=== PATIENT | female | born 1980 | race Caucasian/White ===

== ENCOUNTER 2017-04-16 18:37 | Observation (INO) | payer BC ==
[2017-04-16] MEDS ORDERED: Lactated Ringers 1,000 ML IV SCH (20:00)
== END 2017-04-16 21:45 | disposition home or self-care (01) ==
LOC: MW.OBCHECK 18:37 → MW.OB 18:40 → MW.OBCHECK 19:29
PROVIDERS: ADMIT Obstetrics & Gynecology; ATTEND Obstetrics & Gynecology
DX: O60.03 Preterm labor without delivery, third trimester (principal); O40.3XX0 Polyhydramnios, third trimester, not applicable or unspecified; Z3A.37 37 weeks gestation of pregnancy
CPT/HCPCS: 59025; J7120

== ENCOUNTER 2017-04-23 15:06 | Inpatient (IN) | payer BC ==
[2017-04-23] MEDS ORDERED: Sodium Chloride 0.9% 2.5 ML Syringe FLUSH PRN (15:37)
[2017-04-23] MEDS ORDERED: Sodium Chloride 0.9% 10 ML Syringe FLUSH PRN (15:37)
[2017-04-23] MEDS ORDERED: ceFAZolin 2 GM in Premix Bag 1 BAG IV ONE (15:37)
[2017-04-23] MEDS: Lactated Ringers 1,000 ML IV SCH ×3 (15:45→17:55)
[2017-04-23] MEDS ORDERED: Oxytocin/0.9 % Sodium Chloride 30 UNIT/500 ML BAG IV SCH (15:45)
[2017-04-23] MEDS ORDERED: Citric Acid/Sodium Citrate Solution 30 ML Cup PO SCH (15:45)
[2017-04-23] MEDS ORDERED: Sodium Chloride 0.9% 20 ML ONE (15:54)
[2017-04-23] MEDS ORDERED: Ondansetron 4 MG/2 ML SDV ONE (15:54)
[2017-04-23] MEDS ORDERED: ePHEDrine 50 MG/ML SDV ONE (15:54)
[2017-04-23] MEDS ORDERED: ceFAZolin 1 GM Vial ONE (15:54)
[2017-04-23] MEDS ORDERED: Oxytocin 10 Units/1 ML SDV ONE (15:54)
[2017-04-23] MEDS ORDERED: Morphine PF 1 MG/ML Amp ONE (15:57)
--- NOTE | 2017-04-23 15:58 | PCM.PREANE ---
Preanesthetic Assessment - Procedure Proposed Procedure: Secondary - Anesthesia/Transfusion/Family Hx Anesthesia History: Prior Anesthesia Without Reaction Family History of Anesthesia Reaction: No Intubation History: Unknown - Review of Systems General: Other (, term) Pulmonary: No Symptoms Cardiovascular: No Symptoms Gastrointestinal: Other (Gastric acid) Neurological: No Symptoms, Other (hx of scoliosis which led to problems placing regional for prior in 2012 elsewhere) Other: Reports: Diabetes (gestational diabetes; on insulin (fbs here at 52)) - Physical Assessment NPO Status Date: 04/23/17 NPO Status Time: 08:00 Height: 5 ft 3 in Weight: 210 lb ASA Class: 2E Mental Status: Alert & Oriented x3 Airway Class: Mallampati = 2 Dentition: Reports: Normal Dentition Thyro-Mental Finger Breadths: 3 Mouth Opening Finger Breadths: 3 ROM/Head Extension: Full Lungs: Clear to Auscultation, Normal Respiratory Effort Cardiovascular: Regular Rate, No Murmurs Other: palpable back (stated she has scoliosis) - Allergies Allergies/Adverse Reactions: Allergies Allergy/AdvReac Type Severity Reaction Status Date / Time No Known Allergies Allergy Verified 04/23/17 15:36 - Blood Blood Available: Yes Product(s) Available: PRBC (T and S) - Anesthesia Plan Pre-Op Medication Ordered: Antacids - Acknowledgements Anesthesia Type Planned: Spinal Pt an Appropriate Candidate for the Planned Anesthesia: Yes Alternatives and Risks of Anesthesia Discussed w Pt/Guardian: Yes Pt/Guardian Understands and Agrees with Anesthesia Plan: Yes Additional Comments: Ordered Dextrose to be titrated per [employer] ENGINEER/RN with D50. 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: Musculoskeletal History: Reports: None Neurological History: Reports: None Psychiatric History: Reports: Anxiety, Depression Endocrine/Metabolic History: Reports: Diabetes, Gestational Other Endocrine/Metabolic History: Hypothyroidism hx Oncologic (Cancer) History: Reports: Other (See Below) Other Oncologic History: Hx of SHANDRA 111 Dermatologic History: Reports: None - Infectious Disease History Infectious Disease History: Reports: None - Past Surgical History GI Surgical History: Reports: Cholecystectomy Female Surgical History: Reports: Section Musculoskeletal Surgical History: Reports: None - SUBSTANCE USE Smoking Status *Q: Current Some Day Smoker Tobacco Use Within Last Twelve Months: Cigarettes Second Hand Smoke Exposure: Yes Days Per Week of Alcohol Use: 4 Number of Drinks Per Day: 10 Total Drinks Per Week: 40 Recreational Drug Use History: Yes Recreational Drug Type: Reports: Marijuana/Hashish - HOME MEDS Home Medications: Home Meds ALPRAZolam [Xanax] 1 mg PO ASDIRECTED 09/08/13 [History] Sertraline [Zoloft] 100 mg PO DAILY 09/08/13 [History] - CURRENT (IN HOUSE) MEDS Current Meds: Current Medications Citric Acid/Sodium Citrate (Bicitra Solution) 30 ml PO .ONCE [facility] Cefazolin Sodium/Dextrose 2 gm (/ Premix) 50 mls @ 100 mls/hr IV ONETIME ONE Stop: 04/23/17 16:06 Lactated Ringer's (Ringers, Lactated) 1,000 mls @ 500 mls/hr IV .BOLUS SHAR[facility]A Oxytocin/Sodium Chloride (Oxytocin 30 Unit/500 Ml-Ns) 30 unit in 500 mls @ 250 mls/hr IV TITRATE [facility] Sodium Chloride (Saline Flush) 10 ml FLUSH ASDIRECTED PRN PRN Reason: Keep Vein Open Sodium Chloride (Saline Flush) 2.5 ml FLUSH ASDIRECTED PRN PRN Reason: Keep Vein Open
[2017-04-23] MEDS ORDERED: 50% Dextrose in Water 50 ML Syringe IVPUSH ONE (16:09)
[2017-04-23] MEDS ORDERED: Octyl 2-Cyanoacrylate 1 Tube ONE (16:15)
[2017-04-23] MEDS ORDERED: fentaNYL 100 MCG/2 ML SDV ONE (16:44)
[2017-04-23] MEDS ORDERED: Midazolam 1 MG/ML 2 ML SDV ONE (16:56)
[2017-04-23] MEDS ORDERED: Ibuprofen 800 MG Tab PO PRN (17:39)
[2017-04-23] MEDS ORDERED: Bisacodyl 10 MG Supp RECTAL PRN (17:39)
[2017-04-23] MEDS ORDERED: diphenhydrAMINE 50 MG/ML SDV IVPUSH PRN (17:39)
[2017-04-23] MEDS ORDERED: Methylergonovine 0.2 MG/1 ML Amp IM PRN (17:39)
[2017-04-23] MEDS ORDERED: Lanolin 100% Cream 7 GM Tube TOP PRN (17:39)
[2017-04-23] MEDS ORDERED: Ondansetron 4 MG/2 ML SDV IV PRN (17:39)
--- NOTE | 2017-04-23 17:46 | PCM.OPNOTE ---
- General Post-Op/Procedure Note Date of Surgery/Procedure: 04/23/17 Operative Procedure(s): repeat low transverse Findings: Liveborn female 8/9 weigth 4170 grams, lower uterine segment encased in adhesions, related to bladder and peritoneum Pre Op Diagnosis: 38 4/7 weeks prior x2, gestational diabetes A2, labor Post-Op Diagnosis: Same and extensive pelvic adhesions Anesthesia Technique: Epidural Primary Surgeon: Amena Watts Anesthesia Provider: Jimmy Starks Compensation Vice President: Cesar Al Pathology: none EBL in mLs: 600 Complications: None Known Condition: Good Free Text/Narrative:: Intake & Output 04/23/17 04/23/17 04/23/17 06:59 14:59 22:59 Intake Total 1000 Balance 1000
[2017-04-23] MEDS ORDERED: fentaNYL 100 MCG/2 ML SDV IVPUSH PRN (18:09)
[2017-04-23] MEDS: Ketorolac 30 MG/ML SDV IVPUSH SCH (18:09)
[2017-04-23] MEDS ORDERED: Naloxone 0.4 MG/ML Syringe IVPUSH PRN (18:09)
[2017-04-23] MEDS ORDERED: Nalbuphine 10 MG/1 ML Vial IVPUSH PRN (18:09)
--- NOTE | 2017-04-23 18:28 | PCM.POSTAN ---
POST ANESTHESIA ASSESSMENT - MENTAL STATUS Mental Status: Alert, Oriented - RESPIRATORY Respiratory Status: Respiratory Rate WNL, Airway Patent, O2 Saturation Stable - CARDIOVASCULAR CV Status: Pulse Rate WNL, Blood Pressure Stable - GASTROINTESTINAL GI Status: No Symptoms - PAIN Pain Score: 1 - POST OP HYDRATION Hydration Status: Adequate & Stable
--- NOTE | 2017-04-23 21:41 | PCM48HPAN ---
Post Anesthesia Note - EVALUATION WITHIN 48HRS OF ANESTHETIC Vital Signs in Normal Range: Yes Patient Participated in Evaluation: Yes Respiratory Function Stable: Yes Airway Patent: Yes Cardiovascular Function Stable: Yes Hydration Status Stable: Yes Pain Control Satisfactory: Yes Nausea and Vomiting Control Satisfactory: Yes Mental Status Recovered: Yes Resp Rate: 18 - COMMENTS/OBSERVATIONS Free Text/Narrative:: Vitals were in normal range. Neuroaxis monitoring continues. No pruritis, no pain, holding baby and smiling.
[2017-04-23] MEDS: Docusate Sodium 100 MG Cap PO SCH (23:48)
[2017-04-24] MEDS: Ketorolac 30 MG/ML SDV IVPUSH SCH ×4 (00:04→17:50)
[2017-04-24] MEDS: Lactated Ringers 1,000 ML IV SCH (00:10)
--- NOTE | 2017-04-24 00:35 | OR ---
SURGEON: Amena Watts M.D. DATE OF PROCEDURE: 04/23/2017 PREOPERATIVE DIAGNOSES: 1. 38-4/7th weeks intrauterine . 2. Active spontaneous labor. 3. Prior delivery x2. 4. Declines vaginal trial of labor. 5. Gestational diabetes. 6. Advanced maternal age. POSTOPERATIVE DIAGNOSES: 1. 38-4/7th weeks intrauterine . 2. Active spontaneous labor. 3. Prior delivery x2. 4. Declines vaginal trial of labor. 5. Gestational diabetes. 6. Advanced maternal age. 7. Pelvic adhesions. PROCEDURE: Repeat low-transverse section with lysis of adhesions. ANESTHESIA: Spinal. ESTIMATED BLOOD LOSS: 600 mL. FINDINGS: Liveborn female, score of 8 and 9, weighing 4170 g. Normal-appearing tubes and ovaries. There was dense adhesion all across the lower uterine segment involving the peritoneum and bladder, which was dissected and adhesion barrier was placed. COMPLICATIONS: None known. DISPOSITION: Stable to recovery. BRIEF HISTORY: This is a 36-year-old female. She is G5, P2-0-2-2, who presents at 38-4/7th weeks' gestation with contractions becoming increasingly regular and painful every 2 to 3 minutes. During observation on Labor and Delivery, she changed from 3 to 4 cm dilatation. She is scheduled for repeat delivery in 1 week and, therefore, a decision was made to proceed with a repeat with risks discussed including bleeding; infection; injury to bowel, bladder, or blood vessels; injury to other organs; risk of thromboembolic event; and risk of anesthesia. Understanding all these risks, she does desire to proceed. DESCRIPTION OF PROCEDURE: With the patient in left tilt position, under adequate spinal analgesia, the abdomen was prepped with chlorhexidine and draped in the usual fashion for abdominal surgery. SCDs were in place, Zuleta catheter had been placed, and she had received 2 g of Ancef IV. After documentation of adequate analgesia, the prior cicatrix was excised, and the incision was carried through subcutaneous tissue in a low transverse incision to the fascia, which was scored transversely. The fascia was elevated from the underlying rectus muscle and using sharp and blunt dissection. There were large blood vessels feeding the prior adhesions, and these were cauterized. The rectus muscles were then bluntly in the midline. A finger was used to enter the peritoneal cavity towards the caudad end of the incision, and there were no adhesions cephalad to the entry point, but there were extensive adhesions in the caudad direction over the lower uterine segment. There were also large tortuous vessels within these adhesions. The large tortuous vessels were grasped with clamp and cauterized in order to facilitate dissection of the adhesions off the lower uterine segment which was performed in a slow meticulous fashion using Metzenbaum scissors and electrocautery for hemostasis. Once the dense adhesions had been released, the bladder was easily pushed down below the field of dissection, and a transverse curvilinear incision was made over the lower uterine segment with a scalpel. A finger was used to enter the amniotic cavity. Meconium was noted. The head was delivered via the uterine incision, and DeLee suction was performed with subsequent delivery of the infant's shoulders and body without any difficulty. The was a liveborn female, score of 8 and 9, weighing 4170 g. After the cord was clamped x2 and cut and the infant was handed to Dr. Peng who was present at delivery, cord blood was collected for cord ABGs as well as routine cord blood sampling. The placenta was removed with fundal massage, and the uterus was cleaned with a dry laparotomy tape. The uterine incision was closed with a running locked suture of 0 Polysorb, followed by an imbricating layer of 0 Polysorb. The posterior cul-de-sac and pericolic gutters were cleaned with wet laparotomy tape. The tubes and ovaries were inspected and they appeared normal. Complete hemostasis was confirmed over the lower uterine segment. However, it was very raw from the dissection and, therefore, adhesion barrier was placed. The rectus muscle and peritoneum were then loosely approximated in the midline using a running mattress suture of 0 Polysorb. The posterior aspect of the fascia was inspected. There were no areas of bleeding. Therefore, the fascial incision was closed with a running suture of 0 Polysorb. Subcutaneous tissue was copiously irrigated. Any areas of bleeding that were noted were cauterized. The deep subcutaneous tissue was closed with 0 Vicryl, and 3-0 Polysorb was utilized for subcuticular closure, followed by Dermabond. Final sponge, needle, and instrument counts were reported as correct. There were no known complications. The patient was transferred to recovery in good condition. OMI / OG /[id number]
[2017-04-24] MEDS: diphenhydrAMINE 50 MG/ML SDV IVPUSH PRN ×2 (01:02→05:04)
[2017-04-24 05:51] LABS: CHLORIDE,CL 104 mmol/L (98-107); SODIUM,NA 134 mmol/L (136-145)
--- NOTE | 2017-04-24 09:37 | PCM.PNPP ---
- General Info Date of Service: 04/24/17 Functional Status: Reports: Pain Controlled, Tolerating Diet, Ambulating, Urinating - Review of Systems General: Denies: Fever, Fatigue, Malaise HEENT: Denies: Headaches Pulmonary: Denies: Shortness of Breath, Pleuritic Chest Pain Cardiovascular: Denies: Chest Pain, Palpitations, Dyspnea on Exertion Gastrointestinal: Denies: Abdominal Pain Genitourinary: Denies: Flank Pain Psychiatric: Denies: Depression, Mood Lability, Anxiety - General Info Date of Service: 04/24/17 - Patient Data Vital Signs - Most Recent: Last Vital Signs Temp 36.9 C 04/24/17 04:00 Pulse 78 04/24/17 04:00 Resp 15 04/24/17 08:00 BP 108/66 04/24/17 04:00 Pulse Ox 94 L 04/24/17 08:00 Weight - Most Recent: 210 lb I&O - Last 24 Hours: Intake & Output 04/23/17 04/24/17 04/24/17 22:59 06:59 14:59 Intake Total 3100 1925 Output Total 190 350 Balance 2910 1575 Lab Results - Last 24 Hours: Laboratory Results - last 24 hr 04/23/17 04/23/17 04/23/17 Range/Units 15:53 15:53 15:54 WBC 5.87 (4.0-11.0) K/uL RBC 4.28 L (4.30-5.90) M/uL Hgb 11.9 L (12.0-16.0) g/dL Hct 36.1 (36.0-46.0) % MCV 84.3 (80.0-98.0) fL MCH 27.8 (27.0-32.0) pg MCHC 33.0 (31.0-37.0) g/dL RDW Std Deviation 43.2 (28.0-62.0) fl RDW Coeff of Carla 14 (11.0-15.0) % Plt Count 248 (150-400) K/uL MPV 11.10 (7.40-12.00) fL Nucleated RBC % 0.0 /100WBC Nucleated RBCs # 0 K/uL Sodium (136-145) mmol/L Potassium (3.5-5.1) mmol/L Chloride (98-107) mmol/L Carbon Dioxide (21.0-32.0) mmol/L BUN (7.0-18.0) mg/dL Creatinine (0.6-1.0) mg/dL Est Cr Clr Drug Dosing mL/min Estimated GFR (MDRD) ml/min Glucose (74-106) mg/dL POC Glucose 52 L (60-110) mg/dL Calcium (8.5-10.1) mg/dL Blood Type O POSITIVE Antibody Screen NEGATIVE 04/23/17 04/23/17 04/23/17 Range/Units 16:26 18:13 21:16 WBC (4.0-11.0) K/uL RBC (4.30-5.90) M/uL Hgb (12.0-16.0) g/dL Hct (36.0-46.0) % MCV (80.0-98.0) fL MCH (27.0-32.0) pg MCHC (31.0-37.0) g/dL RDW Std Deviation (28.0-62.0) fl RDW Coeff of Carla (11.0-15.0) % Plt Count (150-400) K/uL MPV (7.40-12.00) fL Nucleated RBC % /100WBC Nucleated RBCs # K/uL Sodium (136-145) mmol/L Potassium (3.5-5.1) mmol/L Chloride (98-107) mmol/L Carbon Dioxide (21.0-32.0) mmol/L BUN (7.0-18.0) mg/dL Creatinine (0.6-1.0) mg/dL Est Cr Clr Drug Dosing mL/min Estimated GFR (MDRD) ml/min Glucose (74-106) mg/dL POC Glucose 112 H 73 68 (60-110) mg/dL Calcium (8.5-10.1) mg/dL Blood Type Antibody Screen 04/24/17 04/24/17 Range/Units 05:26 05:26 WBC (4.0-11.0) K/uL RBC (4.30-5.90) M/uL Hgb 8.9 L (12.0-16.0) g/dL Hct 27.5 L (36.0-46.0) % MCV (80.0-98.0) fL MCH (27.0-32.0) pg MCHC (31.0-37.0) g/dL RDW Std Deviation (28.0-62.0) fl RDW Coeff of Carla (11.0-15.0) % Plt Count (150-400) K/uL MPV (7.40-12.00) fL Nucleated RBC % /100WBC Nucleated RBCs # K/uL Sodium 134 L (136-145) mmol/L Potassium 4.1 (3.5-5.1) mmol/L Chloride 104 (98-107) mmol/L Carbon Dioxide 25.2 (21.0-32.0) mmol/L BUN 12 (7.0-18.0) mg/dL Creatinine 0.8 (0.6-1.0) mg/dL Est Cr Clr Drug Dosing 81.19 mL/min Estimated GFR (MDRD) > 60.0 ml/min Glucose 64 L (74-106) mg/dL POC Glucose (60-110) mg/dL Calcium 8.0 L (8.5-10.1) mg/dL Blood Type Antibody Screen Med Orders - Current: Current Medications Bisacodyl (Dulcolax) 10 mg RECTAL .ONCE PRN PRN Reason: Constipation Citric Acid/Sodium Citrate (Bicitra Solution) 30 ml PO .ONCE [facility] Last Admin: 04/23/17 16:24 Dose: 30 ml Diphenhydramine HCl (Benadryl) 25 mg IVPUSH Q6H PRN PRN Reason: Itching or Nausea Diphenhydramine HCl (Benadryl) 25 mg IVPUSH Q4H PRN PRN Reason: Itching Stop: 04/24/17 18:09 Last Admin: 04/24/17 05:04 Dose: 25 mg Docusate Sodium (Colace) 100 mg PO BID [facility] Last Admin: 04/23/17 23:48 Dose: Not Given Emollient Ointment (Lansinoh Hpa) 0 gm TOP ASDIRECTED PRN PRN Reason: Sore Nipples Fentanyl (Sublimaze) 50 mcg IVPUSH Q45M PRN PRN Reason: Pain (severe 7-10) Stop: 04/24/17 18:10 Lactated Ringer's (Ringers, Lactated) 1,000 mls @ 500 mls/hr IV .BOLUS [facility] Last Admin: 04/23/17 16:19 Dose: 999 mls/hr Oxytocin/Sodium Chloride (Oxytocin 30 Unit/500 Ml-Ns) 30 unit in 500 mls @ 250 mls/hr IV TITRATE [facility] Lactated Ringer's (Ringers, Lactated) 1,000 mls @ 125 mls/hr IV ASDIRECTED [facility] Last Admin: 04/24/17 00:10 Dose: 125 mls/hr Ibuprofen (Motrin) 800 mg PO Q8H PRN PRN Reason: mild pain or fever Ketorolac Tromethamine (Toradol) 30 mg IVPUSH Q6H [facility] Stop: 04/24/17 17:46 Last Admin: 04/24/17 06:03 Dose: 30 mg Methylergonovine Maleate (Methergine) 0.2 mg IM .ONCE PRN PRN Reason: Excessive Vaginal Bleeding Nalbuphine HCl (Nubain) 5 mg IVPUSH Q3H PRN PRN Reason: Pruritis Stop: 04/24/17 18:09 Naloxone HCl (Narcan) 0.1 mg IVPUSH ONETIME PRN PRN Reason: Respiratory Depression Stop: 04/24/17 18:09 Ondansetron HCl (Zofran) 4 mg IV Q4H PRN PRN Reason: Nausea/Vomiting Last Admin: 04/23/17 23:30 Dose: 4 mg Oxycodone/Acetaminophen (Percocet 325-5 Mg) 1 tab PO Q4H PRN PRN Reason: Pain (moderate 4-6) Oxycodone/Acetaminophen (Percocet 325-5 Mg) 2 tab PO Q4H PRN PRN Reason: Pain (moderate 4-6) Sodium Chloride (Saline Flush) 10 ml FLUSH ASDIRECTED PRN PRN Reason: Keep Vein Open Sodium Chloride (Saline Flush) 2.5 ml FLUSH ASDIRECTED PRN PRN Reason: Keep Vein Open Discontinued Medications Cefazolin Sodium (Ancef) Confirm Administered Dose 2 gm .ROUTE .STK-MED ONE Stop: 04/23/17 15:55 Dextrose/Water (Dextrose 50% In Water) 50 ml IVPUSH ONETIME ONE Stop: 04/23/17 16:10 Last Admin: 04/23/17 16:13 Dose: 25 ml Ephedrine Sulfate (Ephedrine Sulfate) Confirm Administered Dose 50 mg .ROUTE .STK-MED ONE Stop: 04/23/17 15:55 Fentanyl (Sublimaze) Confirm Administered Dose 100 mcg .ROUTE .STK-MED ONE Stop: 04/23/17 16:45 Cefazolin Sodium/Dextrose 2 gm (/ Premix) 50 mls @ 100 mls/hr IV ONETIME ONE Stop: 04/23/17 16:06 Sodium Chloride (Normal Saline) Confirm Administered Dose 20 mls @ as directed .ROUTE .STK-MED ONE Stop: 04/23/17 15:55 Ibuprofen (Motrin) 800 mg PO Q8H PRN PRN Reason: mild pain or fever Midazolam HCl (Versed 1 Mg/Ml) Confirm Administered Dose 2 mg .ROUTE .STK-MED ONE Stop: 04/23/17 16:57 Morphine Sulfate (Duramorph Pf) Confirm Administered Dose 1 mg .ROUTE .STK-MED ONE Stop: 04/23/17 15:58 Octyl Cyanoacrylate (Dermabond Advance) Confirm Administered Dose 1 applic .ROUTE .STK-MED ONE Stop: 04/23/17 16:16 Ondansetron HCl (Zofran) Confirm Administered Dose 4 mg .ROUTE .STK-MED ONE Stop: 04/23/17 15:55 Oxytocin (Pitocin) Confirm Administered Dose 20 unit .ROUTE .STK-MED ONE Stop: 04/23/17 15:55 - Interaction Disposition, : [place] in Room with Family Infant Feeding: Bottle Fed Support Person: - Recovery Exam Fundal Tone: Firm Fundal Level: 2 Fingerbreadths Below Umbilicus Fundal Placement: Right Lochia Amount: Scant Lochia Color: Rubra/Red Perineum Description: Intact, Minimal Bruising/Swelling Episiotomy/Laceration: None Other Urinary Elimination, : Catheter removed - Exam General: Alert, Oriented HEENT: Pupils Equal Lungs: Clear to Auscultation, Normal Respiratory Effort Cardiovascular: Regular Rate, Regular Rhythm GI/Abdominal Exam: Normal Bowel Sounds, Non-Tender Extremities: Normal Inspection, Pedal Edema Skin: Warm Wound/Incisions: Dressing Dry and Intact Psy/Mental Status: Alert, Normal Affect, Normal Mood - Problem List & Annotations (1) Delivery by section of full-term infant SNOMED Code(s): 209910916 Code(s): O82 - ENCOUNTER FOR DELIVERY WITHOUT INDICATION Status: Acute Current Visit: Yes (2) H/O section SNOMED Code(s): 359038476 Code(s): Z98.891 - HISTORY OF UTERINE SCAR FROM PREVIOUS SURGERY Status: Acute Current Visit: Yes (3) Gestational diabetes SNOMED Code(s): 16569767 Code(s): O24.419 - GESTATIONAL DIABETES MELLITUS IN , UNSP CONTROL Status: Acute Current Visit: Yes Qualifiers: Gestational diabetes mellitus control: insulin-controlled (4) Dysthymic disorder SNOMED Code(s): 32901394 Code(s): F34.1 - DYSTHYMIC DISORDER Status: Acute Current Visit: Yes - Problem List Review Problem List Initiated/Reviewed/Updated: Yes - Assessment Assessment:: POD#1 s/p RLTCS, stable and afebrile Gestational diabetes, insulin controlled, complicating - BS WNL Depression with Anxiety- Mood stable - Plan Plan:: Continue routine care. Restart Zoloft OOB and ambulate ad lyric Saline out after Toradol this afternoon
[2017-04-24] MEDS: Sertraline 100 MG Tab PO SCH (12:06)
[2017-04-24] MEDS: Docusate Sodium 100 MG Cap PO SCH ×2 (12:06→21:03)
[2017-04-24] MEDS: Acetaminophen/oxyCODONE 325-5 MG Tab PO PRN ×2 (18:20→22:52)
[2017-04-24] MEDS ORDERED: Ibuprofen 800 MG Tab PO PRN (23:45)
[2017-04-25] MEDS: Acetaminophen/oxyCODONE 325-5 MG Tab PO PRN ×3 (03:34→12:53)
[2017-04-25 09:03] VITALS: BP 110/77
[2017-04-25] MEDS: Sertraline 100 MG Tab PO SCH (09:11)
[2017-04-25] MEDS: Docusate Sodium 100 MG Cap PO SCH (09:12)
--- NOTE | 2017-04-25 12:26 | PCM.PNPP ---
- General Info Date of Service: 04/25/17 Functional Status: Reports: Pain Controlled, Tolerating Diet, Ambulating, Urinating - Review of Systems General: Denies: Fever, Chills HEENT: Denies: Headaches Pulmonary: Denies: Shortness of Breath, Pleuritic Chest Pain, Cough Cardiovascular: Denies: Chest Pain, Palpitations, Dyspnea on Exertion Gastrointestinal: Denies: Abdominal Pain Genitourinary: Denies: Dysuria, Incontinence, Flank Pain Psychiatric: Denies: Depression, Mood Lability, Anxiety - General Info Date of Service: 04/25/17 - Patient Data Vital Signs - Most Recent: Last Vital Signs Temp 36.6 C 04/25/17 08:05 Pulse 86 04/25/17 08:05 Resp 16 04/25/17 08:05 BP 110/77 04/25/17 08:05 Pulse Ox 97 04/25/17 08:05 Weight - Most Recent: 210 lb Med Orders - Current: Current Medications Bisacodyl (Dulcolax) 10 mg RECTAL .ONCE PRN PRN Reason: Constipation Citric Acid/Sodium Citrate (Bicitra Solution) 30 ml PO .ONCE [facility] Last Admin: 04/23/17 16:24 Dose: 30 ml Diphenhydramine HCl (Benadryl) 25 mg IVPUSH Q6H PRN PRN Reason: Itching or Nausea Docusate Sodium (Colace) 100 mg PO BID [facility] Last Admin: 04/25/17 09:12 Dose: 100 mg Emollient Ointment (Lansinoh Hpa) 0 gm TOP ASDIRECTED PRN PRN Reason: Sore Nipples Lactated Ringer's (Ringers, Lactated) 1,000 mls @ 500 mls/hr IV .BOLUS [facility] Last Admin: 04/23/17 16:19 Dose: 999 mls/hr Oxytocin/Sodium Chloride (Oxytocin 30 Unit/500 Ml-Ns) 30 unit in 500 mls @ 250 mls/hr IV TITRATE SHARIFA Lactated Ringer's (Ringers, Lactated) 1,000 mls @ 125 mls/hr IV ASDIRECTED [facility] Last Admin: 04/24/17 00:10 Dose: 125 mls/hr Ibuprofen (Motrin) 800 mg PO Q8H PRN PRN Reason: mild pain or fever Methylergonovine Maleate (Methergine) 0.2 mg IM .ONCE PRN PRN Reason: Excessive Vaginal Bleeding Ondansetron HCl (Zofran) 4 mg IV Q4H PRN PRN Reason: Nausea/Vomiting Last Admin: 04/23/17 23:30 Dose: 4 mg Oxycodone/Acetaminophen (Percocet 325-5 Mg) 1 tab PO Q4H PRN PRN Reason: Pain (moderate 4-6) Last Admin: 04/24/17 22:52 Dose: 1 tab Oxycodone/Acetaminophen (Percocet 325-5 Mg) 2 tab PO Q4H PRN PRN Reason: Pain (moderate 4-6) Last Admin: 04/25/17 09:12 Dose: 2 tab Sertraline HCl (Zoloft) 150 mg PO DAILY [facility] Last Admin: 04/25/17 09:11 Dose: 150 mg Sodium Chloride (Saline Flush) 10 ml FLUSH ASDIRECTED PRN PRN Reason: Keep Vein Open Sodium Chloride (Saline Flush) 2.5 ml FLUSH ASDIRECTED PRN PRN Reason: Keep Vein Open Discontinued Medications Cefazolin Sodium (Ancef) Confirm Administered Dose 2 gm .ROUTE .STK-MED ONE Stop: 04/23/17 15:55 Dextrose/Water (Dextrose 50% In Water) 50 ml IVPUSH ONETIME ONE Stop: 04/23/17 16:10 Last Admin: 04/23/17 16:13 Dose: 25 ml Diphenhydramine HCl (Benadryl) 25 mg IVPUSH Q4H PRN PRN Reason: Itching Stop: 04/24/17 18:09 Last Admin: 04/24/17 05:04 Dose: 25 mg Ephedrine Sulfate (Ephedrine Sulfate) Confirm Administered Dose 50 mg .ROUTE .STK-MED ONE Stop: 04/23/17 15:55 Fentanyl (Sublimaze) Confirm Administered Dose 100 mcg .ROUTE .STK-MED ONE Stop: 04/23/17 16:45 Fentanyl (Sublimaze) 50 mcg IVPUSH Q45M PRN PRN Reason: Pain (severe 7-10) Stop: 04/24/17 18:10 Cefazolin Sodium/Dextrose 2 gm (/ Premix) 50 mls @ 100 mls/hr IV ONETIME ONE Stop: 04/23/17 16:06 Sodium Chloride (Normal Saline) Confirm Administered Dose 20 mls @ as directed .ROUTE .STK-MED ONE Stop: 04/23/17 15:55 Ibuprofen (Motrin) 800 mg PO Q8H PRN PRN Reason: mild pain or fever Ketorolac Tromethamine (Toradol) 30 mg IVPUSH Q6H [facility] Stop: 04/24/17 17:46 Last Admin: 04/24/17 17:50 Dose: 30 mg Midazolam HCl (Versed 1 Mg/Ml) Confirm Administered Dose 2 mg .ROUTE .STK-MED ONE Stop: 04/23/17 16:57 Morphine Sulfate (Duramorph Pf) Confirm Administered Dose 1 mg .ROUTE .STK-MED ONE Stop: 04/23/17 15:58 Nalbuphine HCl (Nubain) 5 mg IVPUSH Q3H PRN PRN Reason: Pruritis Stop: 04/24/17 18:09 Naloxone HCl (Narcan) 0.1 mg IVPUSH ONETIME PRN PRN Reason: Respiratory Depression Stop: 04/24/17 18:09 Octyl Cyanoacrylate (Dermabond Advance) Confirm Administered Dose 1 applic .ROUTE .STK-MED ONE Stop: 04/23/17 16:16 Ondansetron HCl (Zofran) Confirm Administered Dose 4 mg .ROUTE .STK-MED ONE Stop: 04/23/17 15:55 Oxytocin (Pitocin) Confirm Administered Dose 20 unit .ROUTE .STK-MED ONE Stop: 04/23/17 15:55 - Infant Interaction Infant Disposition, : [place] in Room with Family Infant Feeding: Bottle Fed Support Person: - Recovery Exam Fundal Tone: Firm Fundal Level: 1 Fingerbreadths Below Umbilicus Fundal Placement: Midline Lochia Amount: Scant Lochia Color: Rubra/Red Perineum Description: Intact, Minimal Bruising/Swelling Episiotomy/Laceration: None Bladder Status: Nonpalpable, Voiding Urinary Elimination: Voided Other Urinary Elimination, : Catheter removed - Exam General: Alert, Oriented HEENT: Pupils Equal Lungs: Clear to Auscultation, Normal Respiratory Effort Cardiovascular: Regular Rate, Regular Rhythm GI/Abdominal Exam: Normal Bowel Sounds Extremities: Non-Tender, Pedal Edema Skin: Warm Wound/Incisions: Healing Well Neurological: No New Focal Deficit Psy/Mental Status: Alert, Normal Affect, Normal Mood - Problem List & Annotations (1) Delivery by section of full-term SNOMED Code(s): 562349036 Code(s): O82 - ENCOUNTER FOR DELIVERY WITHOUT INDICATION Status: Acute Current Visit: Yes (2) H/O section SNOMED Code(s): 830129643 Code(s): Z98.891 - HISTORY OF UTERINE SCAR FROM PREVIOUS SURGERY Status: Acute Current Visit: Yes (3) Gestational diabetes SNOMED Code(s): 79724546 Code(s): O24.419 - GESTATIONAL DIABETES MELLITUS IN , UNSP CONTROL Status: Acute Current Visit: Yes Qualifiers: Gestational diabetes mellitus control: insulin-controlled (4) Dysthymic disorder SNOMED Code(s): 85711077 Code(s): F34.1 - DYSTHYMIC DISORDER Status: Acute Current Visit: Yes - Problem List Review Problem List Initiated/Reviewed/Updated: Yes - Assessment Assessment:: POD#2 s/p RLTCS, stable and afebrile Doing well and stable for discharge today - Plan Plan:: Discharge instructions reviewed with patient Prescription for pain meds- Ibuprofen and Percocet sent to her pharmacy Care of incision reviewed Bleeding and infection precautions reviewed Nothing in the vagina for 6 weeks She should continue her Zoloft and may restart her Xanax PRN Follow up in the clinic in 2 and 6weeks
== END 2017-04-25 14:25 | disposition home or self-care (01) | DRG 540 ==
LOC: MW.OBCHECK 15:06 → MW.OB 15:09 → OBSVTOIN 15:37 → MW.OB 15:37 → MW.OBCHECK 15:37
PROVIDERS: ADMIT Obstetrics & Gynecology; ATTEND Obstetrics & Gynecology
PROC: 10D00Z1 Extraction of Products of Conception, Low, Open Approach (ICD-10-PCS; principal; 2017-04-23)
PROC: 3E0P05Z Introduction of Adhesion Barrier into Female Reproductive, Open Approach (ICD-10-PCS; 2017-04-23)
PROC: 0DNW0ZZ Release Peritoneum, Open Approach (ICD-10-PCS; 2017-04-23)
DX: O24.429 Gestational diabetes mellitus in childbirth, unspecified control (principal); O09.523 Supervision of elderly multigravida, third trimester; Z3A.38 38 weeks gestation of pregnancy; Z37.0 Single live birth
CPT/HCPCS: 01961; 36415; 59025; 80048; 82962; 85014; 85018; 85027; 86850; 86900; 86901; A9270-GY; J0690; J1200; J1885; J2250; J2274; J2405; J2590; J3010; J7060; J7120

== ENCOUNTER 2019-11-21 15:14 | Inpatient (IN) | payer BC ==
[2019-11-21] MEDS ORDERED: Sodium Chloride 0.9% 10 ML SDV IV PRN (16:12)
[2019-11-21] MEDS ORDERED: Citric Acid/Sodium Citrate Solution 30 ML Cup PO ONE (16:12)
[2019-11-21] MEDS ORDERED: ceFAZolin 2 GM in Premix Bag 1 BAG IV ONE (16:12)
[2019-11-21] MEDS ORDERED: Sodium Chloride 0.9% 2.5 ML Syringe FLUSH PRN (16:12)
[2019-11-21] MEDS ORDERED: Sodium Chloride 0.9% 10 ML Syringe FLUSH PRN (16:12)
[2019-11-21] MEDS ORDERED: Lactated Ringers 1,000 ML IV SCH ×2 (16:15→20:00)
[2019-11-21] MEDS ORDERED: Oxytocin/0.9 % Sodium Chloride 30 UNIT/500 ML BAG IV SCH (16:15)
[2019-11-21] MEDS ORDERED: Acetaminophen 650 MG Supp RECTAL ONE (16:18)
[2019-11-21] MEDS ORDERED: ceFAZolin/Dextrose,Iso-Osmotic 2 GM/50 ML Duplex Bag IV ONE (16:38)
[2019-11-21] MEDS ORDERED: fentaNYL 100 MCG/2 ML SDV ONE (16:39)
[2019-11-21] MEDS ORDERED: Morphine PF 10 MG/10 ML SDV ONE (16:39)
[2019-11-21] MEDS ORDERED: Ondansetron 4 MG/2 ML SDV ONE (16:45)
[2019-11-21] MEDS ORDERED: Oxytocin 10 Units/1 ML SDV ONE (16:45)
[2019-11-21] MEDS ORDERED: Ketorolac 30 MG/ML SDV ONE (16:45)
[2019-11-21] MEDS ORDERED: Dexamethasone 4 MG/ML 5 ML MDV ONE (16:46)
--- NOTE | 2019-11-21 16:56 | PCM.PREANE ---
Preanesthetic Assessment - Anesthesia/Transfusion/Family Hx Anesthesia History: Prior Anesthesia Without Reaction Other Type of Anesthesia Reaction Comment: grandmother and myself have problems with postop N&V Family History of Anesthesia Reaction: No Transfusion History: No Prior Transfusion(s) Intubation History: Unknown - Review of Systems General: No Symptoms Pulmonary: No Symptoms Cardiovascular: No Symptoms Gastrointestinal: No Symptoms Neurological: No Symptoms Other: Reports: None - Physical Assessment Height: 5 ft 3 in Weight: 90.718 kg ASA Class: 2E Mental Status: Alert & Oriented x3 Airway Class: Mallampati = 2 Dentition: Reports: Normal Dentition Thyro-Mental Finger Breadths: 3 Mouth Opening Finger Breadths: 3 ROM/Head Extension: Full Lungs: Clear to Auscultation, Normal Respiratory Effort Cardiovascular: Regular Rate, Regular Rhythm - Allergies Allergies/Adverse Reactions: Allergies Allergy/AdvReac Type Severity Reaction Status Date / Time No Known Allergies Allergy Verified 11/20/19 10:49 - Blood Blood Available: No - Anesthesia Plan Pre-Op Medication Ordered: None - Acknowledgements Anesthesia Type Planned: Spinal (general anesthesia back-up plan) Pt an Appropriate Candidate for the Planned Anesthesia: Yes Alternatives and Risks of Anesthesia Discussed w Pt/Guardian: Yes Pt/Guardian Understands and Agrees with Anesthesia Plan: Yes PreAnesthesia Questionnaire - Past Health History Medical/Surgical History: Denies Medical/Surgical History HEENT History: Reports: Other (See Below) Other HEENT History: wears glasses Cardiovascular History: Reports: Other (See Below) Other Cardiovascular History: elevated BP now due to preeclampsia Respiratory History: Reports: None Gastrointestinal History: Reports: Other (See Below) Other Gastrointestinal History: occasional heartburn with Genitourinary History: Reports: None REPOSSESSOR History: Reports: , Spontaneous Other OB/BYN History: ETOP, Musculoskeletal History: Reports: None Neurological History: Reports: None Psychiatric History: Reports: Anxiety, Depression Endocrine/Metabolic History: Reports: Diabetes, Gestational, Obesity/BMI 30+ Hematologic History: Reports: None Immunologic History: Reports: None Oncologic (Cancer) History: Reports: None Dermatologic History: Reports: None - Infectious Disease History Infectious Disease History: Reports: None - Past Surgical History Head Surgeries/Procedures: Reports: None HEENT Surgical History: Reports: Oral Surgery Other HEENT Surgeries/Procedures: wisdom teeth extraction Cardiovascular Surgical History: Reports: None Respiratory Surgical History: Reports: None GI Surgical History: Reports: Cholecystectomy Female Surgical History: Reports: Section (x3), Other (See Below) Other Female Surgeries/Procedures: wide incision of vulva Endocrine Surgical History: Reports: None Neurological Surgical History: Reports: None Musculoskeletal Surgical History: Reports: None Oncologic Surgical History: Reports: None Dermatological Surgical History: Reports: None - SUBSTANCE USE Tobacco Use Status *Q: Former Tobacco User (quit 3 years ago) - HOME MEDS Home Medications: Home Meds Sertraline [Zoloft] 150 mg PO DAILY 09/08/13 [History] Acyclovir 400 mg PO BID 04/23/17 [History] Insulin Aspart [NovoLOG] 4 units SUBCUT BID 04/23/17 [History] Vit Calc,Iron,Folic [ Vitamins] 1 tab PO DAILY 04/23/17 [History] Insulin Isophane NPH, Human [NovoLIN N] 12 injection SUBCUT ASDIRECTED 11/20/19 [History] - CURRENT (IN HOUSE) MEDS Current Meds: Current Medications Lactated Ringer's (Ringers, Lactated) 1,000 mls @ 500 mls/hr IV BOLUS SHARIFA Oxytocin/Sodium Chloride (Oxytocin 30 Unit/500 Ml-Ns) 30 unit in 500 mls @ 250 mls/hr IV TITRATE [facility] Sodium Chloride (Saline Flush) 10 ml FLUSH ASDIRECTED PRN PRN Reason: Keep Vein Open Sodium Chloride (Saline Flush) 2.5 ml FLUSH ASDIRECTED PRN PRN Reason: Keep Vein Open Sodium Chloride (Normal Saline) 10 ml IV ASDIRECTED PRN PRN Reason: IV Use Discontinued Medications Acetaminophen (Tylenol) 650 mg RECTAL NOW ONE Stop: 11/21/19 16:19 Cefazolin Sodium/Dextrose (Ancef) Confirm Administered Dose 2 gm IV .STK-MED ONE Stop: 11/21/19 16:39 Citric Acid/Sodium Citrate (Bicitra Solution) 30 ml PO ONETIME ONE Stop: 11/21/19 16:13 Dexamethasone (Dexamethasone) Confirm Administered Dose 20 mg .ROUTE .STK-MED ONE Stop: 11/21/19 16:47 Fentanyl (Sublimaze) Confirm Administered Dose 100 mcg .ROUTE .STK-MED ONE Stop: 11/21/19 16:40 Cefazolin Sodium/Dextrose 2 gm (/ Premix) 50 mls @ 100 mls/hr IV ONETIME ONE Stop: 11/21/19 16:41 Ketorolac Tromethamine (Toradol) Confirm Administered Dose 30 mg .ROUTE .STK-MED ONE Stop: 11/21/19 16:46 Morphine Sulfate (Duramorph Pf) Confirm Administered Dose 10 mg .ROUTE .STK-MED ONE Stop: 11/21/19 16:40 Ondansetron HCl (Zofran) Confirm Administered Dose 4 mg .ROUTE .STK-MED ONE Stop: 11/21/19 16:46 Oxytocin (Pitocin) Confirm Administered Dose 30 unit .ROUTE .STK-MED ONE Stop: 11/21/19 16:46
[2019-11-21 17:29] LABS: BLOOD UREA NITROGEN,BUN 13 mg/dL (7.0-18.0); CHLORIDE,CL 102 mmol/L (98-107); GLUCOSE RANDOM 117 mg/dL (74-106); POTASSIUM,K 4.1 mmol/L (3.5-5.1); SODIUM,NA 136 mmol/L (136-145)
[2019-11-21] MEDS ORDERED: fentaNYL 100 MCG/2 ML SDV IVPUSH PRN (19:37)
[2019-11-21] MEDS ORDERED: Acetaminophen/oxyCODONE 325-5 MG Tab PO PRN ×2 (19:37→19:49)
[2019-11-21] MEDS ORDERED: Ondansetron 4 MG/2 ML SDV IVPUSH PRN ×2 (19:37→19:49)
[2019-11-21] MEDS ORDERED: Naloxone 0.4 MG/ML Syringe IVPUSH PRN (19:37)
[2019-11-21] MEDS ORDERED: Nalbuphine 10 MG/1 ML Vial IVPUSH PRN (19:37)
[2019-11-21] MEDS ORDERED: diphenhydrAMINE 50 MG/ML SDV IVPUSH PRN ×2 (19:37→19:49)
[2019-11-21] MEDS ORDERED: Lanolin 100% Cream 7 GM Tube TOP PRN (19:49)
[2019-11-21] MEDS ORDERED: Misoprostol 200 MCG Tab RECTAL PRN (19:49)
[2019-11-21] MEDS ORDERED: Oxytocin 10 Units/1 ML SDV IM PRN (19:49)
[2019-11-21] MEDS ORDERED: Bisacodyl 10 MG Supp RECTAL PRN (19:49)
[2019-11-21] MEDS ORDERED: Methylergonovine 0.2 MG/1 ML Amp IM PRN (19:49)
[2019-11-21] MEDS ORDERED: Tranexamic Acid 1,000 MG in Sodium Chloride 0.9% 100 ML IV PRN (19:49)
--- NOTE | 2019-11-21 19:49 | PCM.OPNOTE ---
- General Post-Op/Procedure Note Date of Surgery/Procedure: 11/21/19 Operative Procedure(s): Quaternary Lower transverse Findings: Live male delivered at 1827 , 8/9 weight- 3660g Pre Op Diagnosis: 37w0d Previous X 3. Mild Preclampsia. Gestational DM on Insulin Post-Op Diagnosis: same Anesthesia Technique: Spinal Primary Surgeon: Tito Morel Secondary Surgeon: Tucker Thompson Anesthesia Provider: Britton Gillis Radi Pathology: Placenta Fluid Replacement, Intraop: 1,300 EBL in mLs: 800 Complications: None Condition: Good Free Text/Narrative:: Intake & Output 11/21/19 11/21/19 11/21/19 06:59 14:59 22:59 Intake Total 1500 Output Total 100 Balance 1400
[2019-11-21] MEDS ORDERED: Oxytocin/Lactated Ringers 30 UNIT/500 ML BAG IV SCH (20:00)
[2019-11-21] MEDS: Ketorolac 30 MG/ML SDV IVPUSH SCH (20:53)
[2019-11-22] MEDS: Docusate Sodium 100 MG Cap PO SCH ×3 (01:26→21:45)
[2019-11-22] MEDS: Ketorolac 30 MG/ML SDV IVPUSH SCH ×4 (02:36→21:45)
[2019-11-22 06:50] LABS: BLOOD UREA NITROGEN,BUN 11 mg/dL (7.0-18.0); CARBON DIOXIDE,CO2 24.3 mmol/L (21.0-32.0); CHLORIDE,CL 103 mmol/L (98-107); GLUCOSE RANDOM 89 mg/dL (74-106); POTASSIUM,K 4.1 mmol/L (3.5-5.1); SODIUM,NA 135 mmol/L (136-145)
[2019-11-22] MEDS: Sertraline 100 MG Tab PO SCH (08:47)
--- NOTE | 2019-11-22 09:18 | PCM.POSTAN ---
POST ANESTHESIA ASSESSMENT - MENTAL STATUS Mental Status: Alert, Oriented Free Text/Narrative:: Late entry, pt physically assessed 11/21/19 at 2000. - VITAL SIGNS Vital Signs: Last Vital Signs Temp 36.1 C 11/22/19 07:45 Pulse 90 11/22/19 08:00 Resp 16 11/22/19 08:00 BP 122/81 11/22/19 07:45 Pulse Ox 94 L 11/22/19 08:00 - RESPIRATORY Respiratory Status: Respiratory Rate WNL, Airway Patent, O2 Saturation Stable - CARDIOVASCULAR CV Status: Pulse Rate WNL, Blood Pressure Stable - GASTROINTESTINAL GI Status: No Symptoms - PAIN Pain Score: 3 Free Text/Narrative:: Spinal regressing well, L4 dermatome - POST OP HYDRATION Hydration Status: Adequate & Stable Free Text/Narrative:: Tolerating ice chips well. IV fluid infusing. - OBSERVATIONS Free Text/Narrative:: Meets PACU discharge criteria.
--- NOTE | 2019-11-22 10:12 | PCM.PNPP ---
- General Info Date of Service: 11/22/19 Functional Status: Reports: Pain Controlled, Tolerating Diet - Review of Systems General: Reports: Fatigue. Denies: Fever, Weakness Pulmonary: Denies: Shortness of Breath Cardiovascular: Reports: No Symptoms Gastrointestinal: Denies: Abdominal Pain, Nausea, Vomiting Genitourinary: Denies: Flank Pain Musculoskeletal: Reports: No Symptoms Skin: Reports: No Symptoms Neurological: Reports: No Symptoms Psychiatric: Reports: No Symptoms - General Info Date of Service: 11/22/19 - Patient Data Vital Signs - Most Recent: Last Vital Signs Temp 36.1 C 11/22/19 07:45 Pulse 90 11/22/19 08:00 Resp 16 11/22/19 09:00 BP 122/81 11/22/19 07:45 Pulse Ox 95 11/22/19 09:00 Weight - Most Recent: 90.718 kg I&O - Last 24 Hours: Intake & Output 11/21/19 11/22/19 11/22/19 22:59 06:59 14:59 Intake Total 4400 700 Output Total 100 650 Balance 4300 50 Lab Results - Last 24 Hours: Laboratory Results - last 24 hr 11/21/19 11/21/19 11/21/19 Range/Units 16:09 16:26 16:26 WBC 9.17 (4.0-11.0) K/uL RBC 4.16 L (4.30-5.90) M/uL Hgb 12.8 (12.0-16.0) g/dL Hct 38.6 (36.0-46.0) % MCV 92.8 (80.0-98.0) fL MCH 30.8 (27.0-32.0) pg MCHC 33.2 (31.0-37.0) g/dL RDW Std Deviation 46.5 (28.0-62.0) fl RDW Coeff of Carla 14 (11.0-15.0) % Plt Count 252 (150-400) K/uL MPV 11.50 (7.40-12.00) fL Neut % (Auto) (48.0-80.0) % Lymph % (Auto) (16.0-40.0) % [place] % (Auto) (0.0-15.0) % Eos % (Auto) (0.0-7.0) % Baso % (Auto) (0.0-1.5) % Neut # (Auto) (1.4-5.7) K/uL Lymph # (Auto) (0.6-2.4) K/uL [place] # (Auto) (0.0-0.8) K/uL Eos # (Auto) (0.0-0.7) K/uL Baso # (Auto) (0.0-0.1) K/uL Nucleated RBC % 0.2 /100WBC Nucleated RBCs # 0 K/uL Cord ABG pH (7.18-7.38) Cord ABG Base Excess (-10--2) Cord VBG pH (7.25-7.45) Cord VBG Base Excess (-10--2) Sodium 136 (136-145) mmol/L Potassium 4.1 (3.5-5.1) mmol/L Chloride 102 (98-107) mmol/L Carbon Dioxide 23.0 (21.0-32.0) mmol/L BUN 13 (7.0-18.0) mg/dL Creatinine 0.8 (0.6-1.0) mg/dL Est Cr Clr Drug Dosing 79.65 mL/min Estimated GFR (MDRD) > 60.0 ml/min Glucose 117 H (74-106) mg/dL Uric Acid 5.2 (2.6-7.2) mg/dL Calcium 9.4 (8.5-10.1) mg/dL Total Bilirubin 0.2 (0.2-1.0) mg/dL AST 18 (15-37) IU/L ALT 16 (14-63) IU/L Alkaline Phosphatase 157 H (46-116) U/L Total Protein 6.5 (6.4-8.2) g/dL Albumin 2.6 L (3.4-5.0) g/dL Globulin 3.9 (2.6-4.0) g/dL Albumin/Globulin Ratio 0.7 L (0.9-1.6) SARS-CoV-2 RNA (TONI) NEGATIVE (NEGATIVE) Blood Type Antibody Screen 11/21/19 11/21/19 11/22/19 Range/Units 16:26 18:27 06:08 WBC 10.25 (4.0-11.0) K/uL RBC 3.43 L (4.30-5.90) M/uL Hgb 10.6 L (12.0-16.0) g/dL Hct 32.4 L (36.0-46.0) % MCV 94.5 (80.0-98.0) fL MCH 30.9 (27.0-32.0) pg MCHC 32.7 (31.0-37.0) g/dL RDW Std Deviation 47.7 (28.0-62.0) fl RDW Coeff of Carla 14 (11.0-15.0) % Plt Count 202 (150-400) K/uL MPV 11.00 (7.40-12.00) fL Neut % (Auto) 73.9 (48.0-80.0) % Lymph % (Auto) 18.9 (16.0-40.0) % [place] % (Auto) 6.8 (0.0-15.0) % Eos % (Auto) 0.2 (0.0-7.0) % Baso % (Auto) 0.2 (0.0-1.5) % Neut # (Auto) 7.6 H (1.4-5.7) K/uL Lymph # (Auto) 1.9 (0.6-2.4) K/uL [place] # (Auto) 0.7 (0.0-0.8) K/uL Eos # (Auto) 0.0 (0.0-0.7) K/uL Baso # (Auto) 0.0 (0.0-0.1) K/uL Nucleated RBC % 0.0 /100WBC Nucleated RBCs # 0 K/uL Cord ABG pH 7.177 L (7.18-7.38) Cord ABG Base Excess -5 (-10--2) Cord VBG pH 7.251 (7.25-7.45) Cord VBG Base Excess -4 (-10--2) Sodium (136-145) mmol/L Potassium (3.5-5.1) mmol/L Chloride (98-107) mmol/L Carbon Dioxide (21.0-32.0) mmol/L BUN (7.0-18.0) mg/dL Creatinine (0.6-1.0) mg/dL Est Cr Clr Drug Dosing mL/min Estimated GFR (MDRD) ml/min Glucose (74-106) mg/dL Uric Acid (2.6-7.2) mg/dL Calcium (8.5-10.1) mg/dL Total Bilirubin (0.2-1.0) mg/dL AST (15-37) IU/L ALT (14-63) IU/L Alkaline Phosphatase (46-116) U/L Total Protein (6.4-8.2) g/dL Albumin (3.4-5.0) g/dL Globulin (2.6-4.0) g/dL Albumin/Globulin Ratio (0.9-1.6) SARS-CoV-2 RNA (TONI) (NEGATIVE) Blood Type O POSITIVE Antibody Screen NEGATIVE 11/22/19 Range/Units 06:08 WBC (4.0-11.0) K/uL RBC (4.30-5.90) M/uL Hgb (12.0-16.0) g/dL Hct (36.0-46.0) % MCV (80.0-98.0) fL MCH (27.0-32.0) pg MCHC (31.0-37.0) g/dL RDW Std Deviation (28.0-62.0) fl RDW Coeff of Carla (11.0-15.0) % Plt Count (150-400) K/uL MPV (7.40-12.00) fL Neut % (Auto) (48.0-80.0) % Lymph % (Auto) (16.0-40.0) % [place] % (Auto) (0.0-15.0) % Eos % (Auto) (0.0-7.0) % Baso % (Auto) (0.0-1.5) % Neut # (Auto) (1.4-5.7) K/uL Lymph # (Auto) (0.6-2.4) K/uL [place] # (Auto) (0.0-0.8) K/uL Eos # (Auto) (0.0-0.7) K/uL Baso # (Auto) (0.0-0.1) K/uL Nucleated RBC % /100WBC Nucleated RBCs # K/uL Cord ABG pH (7.18-7.38) Cord ABG Base Excess (-10--2) Cord VBG pH (7.25-7.45) Cord VBG Base Excess (-10--2) Sodium 135 L (136-145) mmol/L Potassium 4.1 (3.5-5.1) mmol/L Chloride 103 (98-107) mmol/L Carbon Dioxide 24.3 (21.0-32.0) mmol/L BUN 11 (7.0-18.0) mg/dL Creatinine 0.8 (0.6-1.0) mg/dL Est Cr Clr Drug Dosing 79.65 mL/min Estimated GFR (MDRD) > 60.0 ml/min Glucose 89 (74-106) mg/dL Uric Acid (2.6-7.2) mg/dL Calcium 8.6 (8.5-10.1) mg/dL Total Bilirubin 0.3 (0.2-1.0) mg/dL AST 15 (15-37) IU/L ALT 16 (14-63) IU/L Alkaline Phosphatase 124 H (46-116) U/L Total Protein 5.3 L (6.4-8.2) g/dL Albumin 2.1 L (3.4-5.0) g/dL Globulin 3.2 (2.6-4.0) g/dL Albumin/Globulin Ratio 0.7 L (0.9-1.6) SARS-CoV-2 RNA (TONI) (NEGATIVE) Blood Type Antibody Screen Med Orders - Current: Current Medications Bisacodyl (Dulcolax) 10 mg RECTAL ONETIME PRN PRN Reason: Constipation Diphenhydramine HCl (Benadryl) 25 mg IVPUSH Q4H PRN PRN Reason: Itching Stop: 11/22/19 19:38 Diphenhydramine HCl (Benadryl) 25 mg IVPUSH Q6H PRN PRN Reason: Itching or Nausea Docusate Sodium (Colace) 100 mg PO BID [facility] Last Admin: 11/22/19 08:47 Dose: 100 mg Documented by: Emollient Ointment (Lansinoh Hpa) 0 gm TOP ASDIRECTED PRN PRN Reason: Sore Nipples Last Admin: 11/22/19 06:38 Dose: 7 gm Documented by: Fentanyl (Sublimaze) 50 mcg IVPUSH Q1H PRN PRN Reason: Pain (severe 7-10) Lactated Ringer's (Ringers, Lactated) 1,000 mls @ 500 mls/hr IV BOLUS [facility] Last Admin: 11/21/19 17:01 Dose: 500 mls/hr Documented by: Oxytocin/Sodium Chloride (Oxytocin 30 Unit/500 Ml-Ns) 30 unit in 500 mls @ 250 mls/hr IV TITRATE [facility] Lactated Ringer's (Ringers, Lactated) 1,000 mls @ 125 mls/hr IV ASDIRECTED [facility] Last Infusion: 11/22/19 04:57 Dose: Infused Documented by: Oxytocin/Lactated Ringer's (Pitocin In Lr 30 Units/500 Ml) 30 unit in 500 mls @ 125 mls/hr IV TITRATE [facility]; Protocol Tranexamic Acid 1,000 mg/ (Sodium Chloride) 110 mls @ 660 mls/hr IV ONETIME PRN PRN Reason: Bleeding Ibuprofen (Motrin) 800 mg PO Q8H PRN PRN Reason: mild pain or fever Ketorolac Tromethamine (Toradol) 30 mg IVPUSH Q6H [facility] Stop: 11/22/19 21:01 Last Admin: 11/22/19 08:47 Dose: 30 mg Documented by: Methylergonovine Maleate (Methergine) 0.2 mg IM ONETIME PRN PRN Reason: Excessive Vaginal Bleeding Misoprostol (Cytotec) 1,000 mcg RECTAL ONETIME PRN PRN Reason: excessive bleeding Nalbuphine HCl (Nubain) 5 mg IVPUSH ASDIRECTED PRN PRN Reason: Itching Naloxone HCl (Narcan) 0.1 mg IVPUSH ONETIME PRN PRN Reason: Respiratory Depression Stop: 11/22/19 19:38 Ondansetron HCl (Zofran) 4 mg IVPUSH Q6H PRN PRN Reason: Nausea Ondansetron HCl (Zofran) 4 mg IVPUSH Q4H PRN PRN Reason: Nausea/Vomiting Oxycodone/Acetaminophen (Percocet 325-5 Mg) 2 tab PO Q6H PRN PRN Reason: Pain (moderate 4-6) Oxycodone/Acetaminophen (Percocet 325-5 Mg) 1 tab PO Q4H PRN PRN Reason: Pain (moderate 4-6) Oxycodone/Acetaminophen (Percocet 325-5 Mg) 2 tab PO Q4H PRN PRN Reason: Pain (moderate 4-6) Oxytocin (Pitocin) 10 unit IM ASDIRECTED PRN PRN Reason: Excessive Vaginal Bleeding Sertraline HCl (Zoloft) 150 mg PO DAILY [facility] Last Admin: 11/22/19 08:47 Dose: 150 mg Documented by: Sodium Chloride (Saline Flush) 10 ml FLUSH ASDIRECTED PRN PRN Reason: Keep Vein Open Sodium Chloride (Saline Flush) 2.5 ml FLUSH ASDIRECTED PRN PRN Reason: Keep Vein Open Sodium Chloride (Normal Saline) 10 ml IV ASDIRECTED PRN PRN Reason: IV Use Discontinued Medications Acetaminophen (Tylenol) 650 mg RECTAL NOW ONE Stop: 11/21/19 16:19 Last Admin: 11/21/19 18:15 Dose: Not Given Documented by: Cefazolin Sodium/Dextrose (Ancef) Confirm Administered Dose 2 gm IV .STK-MED ONE Stop: 11/21/19 16:39 Citric Acid/Sodium Citrate (Bicitra Solution) 30 ml PO ONETIME ONE Stop: 11/21/19 16:13 Last Admin: 11/21/19 18:16 Dose: Not Given Documented by: Dexamethasone (Dexamethasone) Confirm Administered Dose 20 mg .ROUTE .STK-MED ONE Stop: 11/21/19 16:47 Ephedrine Sulfate (Emerphed) Confirm Administered Dose 50 mg .ROUTE .STK-MED ONE Stop: 11/21/19 17:30 Fentanyl (Sublimaze) Confirm Administered Dose 100 mcg .ROUTE .STK-MED ONE Stop: 11/21/19 16:40 Cefazolin Sodium/Dextrose 2 gm (/ Premix) 50 mls @ 100 mls/hr IV ONETIME ONE Stop: 11/21/19 16:41 Last Admin: 11/22/19 04:55 Dose: Not Given Documented by: Ketorolac Tromethamine (Toradol) Confirm Administered Dose 30 mg .ROUTE .STK-MED ONE Stop: 11/21/19 16:46 Morphine Sulfate (Duramorph Pf) Confirm Administered Dose 10 mg .ROUTE .STK-MED ONE Stop: 11/21/19 16:40 Ondansetron HCl (Zofran) Confirm Administered Dose 4 mg .ROUTE .STK-MED ONE Stop: 11/21/19 16:46 Oxytocin (Pitocin) Confirm Administered Dose 30 unit .ROUTE .STK-MED ONE Stop: 11/21/19 16:46 - Infant Interaction Support Person: - Recovery Exam Fundal Tone: Firm Fundal Level: 1 Fingerbreadths Below Umbilicus Fundal Placement: Midline Lochia Amount: Scant Lochia Color: Rubra/Red Perineum Description: Intact, Minimal Bruising/Swelling Episiotomy/Laceration: None Bladder Status: Indwelling Catheter in Place Urinary Elimination: Indwelling Catheter - Exam General: Alert, Oriented Lungs: Normal Respiratory Effort Cardiovascular: Regular Rate, Regular Rhythm GI/Abdominal Exam: Normal Bowel Sounds, Soft Extremities: Pedal Edema (trace). No: Venita's Sign Skin: Warm, Dry, Intact Wound/Incisions: Healing Well, Dressing Dry and Intact Neurological: No New Focal Deficit Psy/Mental Status: Alert, Normal Affect, Normal Mood - Problem List & Annotations (1) Status post repeat low transverse section SNOMED Code(s): 995558443, [id number], [id number], [id number], [id number] Code(s): Z98.891 - HISTORY OF UTERINE SCAR FROM PREVIOUS SURGERY Status: Acute Current Visit: Yes - Problem List Review Problem List Initiated/Reviewed/Updated: Yes - Assessment Assessment:: POD 1 status post repeat c section Gestational HTN Gestational DM - Plan Plan:: Blood pressures nornal range, glucose normal this morning. Ambulate today and may remove catheter this afternoon. Continue postoperative cares.
[2019-11-23] MEDS: Acetaminophen/oxyCODONE 325-5 MG Tab PO PRN ×2 (00:50→11:28)
[2019-11-23] MEDS: Ibuprofen 800 MG Tab PO PRN ×2 (06:20→15:00)
--- NOTE | 2019-11-23 10:50 | PCM.PNPP ---
- General Info Date of Service: 11/23/19 Functional Status: Reports: Pain Controlled, Tolerating Diet, Ambulating, Urinating - Review of Systems General: Reports: Fatigue. Denies: Fever, Weakness Pulmonary: Denies: Shortness of Breath Cardiovascular: Denies: Chest Pain, Palpitations, Lightheadedness Gastrointestinal: Denies: Abdominal Pain, Nausea, Vomiting Genitourinary: Denies: Flank Pain Musculoskeletal: Reports: No Symptoms Skin: Reports: No Symptoms Neurological: Reports: No Symptoms Psychiatric: Reports: No Symptoms - General Info Date of Service: 11/23/19 - Patient Data Vital Signs - Most Recent: Last Vital Signs Temp 36.4 C 11/23/19 07:11 Pulse 93 11/23/19 07:11 Resp 16 11/23/19 07:11 BP 122/66 11/23/19 07:11 Pulse Ox 94 L 11/23/19 07:11 Weight - Most Recent: 90.718 kg I&O - Last 24 Hours: Intake & Output 11/22/19 11/23/19 11/23/19 22:59 06:59 14:59 Output Total 100 375 Balance -100 -375 Med Orders - Current: Current Medications Bisacodyl (Dulcolax) 10 mg RECTAL ONETIME PRN PRN Reason: Constipation Diphenhydramine HCl (Benadryl) 25 mg IVPUSH Q6H PRN PRN Reason: Itching or Nausea Docusate Sodium (Colace) 100 mg PO BID [facility] Last Admin: 11/22/19 21:45 Dose: 100 mg Documented by: Emollient Ointment (Lansinoh Hpa) 0 gm TOP ASDIRECTED PRN PRN Reason: Sore Nipples Last Admin: 11/22/19 06:38 Dose: 7 gm Documented by: Fentanyl (Sublimaze) 50 mcg IVPUSH Q1H PRN PRN Reason: Pain (severe 7-10) Lactated Ringer's (Ringers, Lactated) 1,000 mls @ 500 mls/hr IV BOLUS [facility] Last Admin: 11/21/19 17:01 Dose: 500 mls/hr Documented by: Oxytocin/Sodium Chloride (Oxytocin 30 Unit/500 Ml-Ns) 30 unit in 500 mls @ 250 mls/hr IV TITRATE [facility] Lactated Ringer's (Ringers, Lactated) 1,000 mls @ 125 mls/hr IV ASDIRECTED [facility] Last Infusion: 11/22/19 04:57 Dose: Infused Documented by: Oxytocin/Lactated Ringer's (Pitocin In Lr 30 Units/500 Ml) 30 unit in 500 mls @ 125 mls/hr IV TITRATE SHARIFA; Protocol Tranexamic Acid 1,000 mg/ (Sodium Chloride) 110 mls @ 660 mls/hr IV ONETIME PRN PRN Reason: Bleeding Ibuprofen (Motrin) 800 mg PO Q8H PRN PRN Reason: mild pain or fever Last Admin: 11/23/19 06:20 Dose: 800 mg Documented by: Methylergonovine Maleate (Methergine) 0.2 mg IM ONETIME PRN PRN Reason: Excessive Vaginal Bleeding Misoprostol (Cytotec) 1,000 mcg RECTAL ONETIME PRN PRN Reason: excessive bleeding Nalbuphine HCl (Nubain) 5 mg IVPUSH ASDIRECTED PRN PRN Reason: Itching Ondansetron HCl (Zofran) 4 mg IVPUSH Q6H PRN PRN Reason: Nausea Ondansetron HCl (Zofran) 4 mg IVPUSH Q4H PRN PRN Reason: Nausea/Vomiting Oxycodone/Acetaminophen (Percocet 325-5 Mg) 2 tab PO Q6H PRN PRN Reason: Pain (moderate 4-6) Oxycodone/Acetaminophen (Percocet 325-5 Mg) 1 tab PO Q4H PRN PRN Reason: Pain (moderate 4-6) Oxycodone/Acetaminophen (Percocet 325-5 Mg) 2 tab PO Q4H PRN PRN Reason: Pain (moderate 4-6) Last Admin: 11/23/19 00:50 Dose: 2 tab Documented by: Oxytocin (Pitocin) 10 unit IM ASDIRECTED PRN PRN Reason: Excessive Vaginal Bleeding Sertraline HCl (Zoloft) 150 mg PO DAILY [facility] Last Admin: 11/22/19 08:47 Dose: 150 mg Documented by: Sodium Chloride (Saline Flush) 10 ml FLUSH ASDIRECTED PRN PRN Reason: Keep Vein Open Sodium Chloride (Saline Flush) 2.5 ml FLUSH ASDIRECTED PRN PRN Reason: Keep Vein Open Sodium Chloride (Normal Saline) 10 ml IV ASDIRECTED PRN PRN Reason: IV Use Discontinued Medications Acetaminophen (Tylenol) 650 mg RECTAL NOW ONE Stop: 11/21/19 16:19 Last Admin: 11/21/19 18:15 Dose: Not Given Documented by: Cefazolin Sodium/Dextrose (Ancef) Confirm Administered Dose 2 gm IV .STK-MED ONE Stop: 11/21/19 16:39 Citric Acid/Sodium Citrate (Bicitra Solution) 30 ml PO ONETIME ONE Stop: 11/21/19 16:13 Last Admin: 11/21/19 18:16 Dose: Not Given Documented by: Dexamethasone (Dexamethasone) Confirm Administered Dose 20 mg .ROUTE .STK-MED ONE Stop: 11/21/19 16:47 Diphenhydramine HCl (Benadryl) 25 mg IVPUSH Q4H PRN PRN Reason: Itching Stop: 11/22/19 19:38 Ephedrine Sulfate (Emerphed) Confirm Administered Dose 50 mg .ROUTE .STK-MED ONE Stop: 11/21/19 17:30 Fentanyl (Sublimaze) Confirm Administered Dose 100 mcg .ROUTE .STK-MED ONE Stop: 11/21/19 16:40 Cefazolin Sodium/Dextrose 2 gm (/ Premix) 50 mls @ 100 mls/hr IV ONETIME ONE Stop: 11/21/19 16:41 Last Admin: 11/22/19 04:55 Dose: Not Given Documented by: Ketorolac Tromethamine (Toradol) Confirm Administered Dose 30 mg .ROUTE .STK-MED ONE Stop: 11/21/19 16:46 Ketorolac Tromethamine (Toradol) 30 mg IVPUSH Q6H SHARIFA Stop: 11/22/19 21:01 Last Admin: 11/22/19 21:45 Dose: 30 mg Documented by: Morphine Sulfate (Duramorph Pf) Confirm Administered Dose 10 mg .ROUTE .STK-MED ONE Stop: 11/21/19 16:40 Naloxone HCl (Narcan) 0.1 mg IVPUSH ONETIME PRN PRN Reason: Respiratory Depression Stop: 11/22/19 19:38 Ondansetron HCl (Zofran) Confirm Administered Dose 4 mg .ROUTE .STK-MED ONE Stop: 11/21/19 16:46 Oxytocin (Pitocin) Confirm Administered Dose 30 unit .ROUTE .STK-MED ONE Stop: 11/21/19 16:46 - Infant Interaction Support Person: - Recovery Exam Fundal Tone: Firm Fundal Level: 1 Fingerbreadths Below Umbilicus Fundal Placement: Midline Lochia Amount: Scant Lochia Color: Rubra/Red Perineum Description: Intact, Minimal Bruising/Swelling Episiotomy/Laceration: None Bladder Status: Indwelling Catheter in Place Urinary Elimination: Indwelling Catheter - Exam General: Alert, Oriented Lungs: Normal Respiratory Effort Cardiovascular: Regular Rate, Regular Rhythm GI/Abdominal Exam: Normal Bowel Sounds, Soft, Non-Tender Extremities: Pedal Edema (trace). No: Venita's Sign Skin: Warm, Dry, Intact Wound/Incisions: Healing Well, No Drainage. No: Erythema Neurological: No New Focal Deficit - Problem List & Annotations (1) Status post repeat low transverse section SNOMED Code(s): 725049297, 15536372, 122066511, [id number], 761937301 Code(s): Z98.891 - HISTORY OF UTERINE SCAR FROM PREVIOUS SURGERY Status: Acute Current Visit: Yes - Problem List Review Problem List Initiated/Reviewed/Updated: Yes - Assessment Assessment:: POD 2 status post repeat c section Gestational HTN Gestational DM - Plan Plan:: VS are stable and glucose fasting normal. Patient is feeling well overall and would like to go home later today. Discharge instructions reviewed. Will check glucoses intermittently at home and call if abnormal. Needs 75 gm GTT at PP viist Will return for BP check in 3-5 days. Otherwise incision check and PP visit. Discharge to home today.
--- NOTE | 2019-11-23 11:03 | PCM48HPAN ---
Post Anesthesia Note - EVALUATION WITHIN 48HRS OF ANESTHETIC Vital Signs in Normal Range: Yes Patient Participated in Evaluation: Yes Respiratory Function Stable: Yes Airway Patent: Yes Cardiovascular Function Stable: Yes Hydration Status Stable: Yes Pain Control Satisfactory: Yes Nausea and Vomiting Control Satisfactory: Yes Mental Status Recovered: Yes Vital Signs: Last Vital Signs Temp 36.4 C 11/23/19 07:11 Pulse 93 11/23/19 07:11 Resp 16 11/23/19 07:11 BP 122/66 11/23/19 07:11 Pulse Ox 94 L 11/23/19 07:11 - COMMENTS/OBSERVATIONS Free Text/Narrative:: Patient seen yesterday in person. Denied N/V, reported satisfactory pain control and full return of strength and sensation to BLE, but had not yet ambulated. Sleeping soundly today. Consulted patient's RN who has witnessed pt ambulate independently without difficulty, and confirms continued satisfactory pain level and absence of N/V.
[2019-11-23] MEDS: Sertraline 100 MG Tab PO SCH (11:28)
[2019-11-23] MEDS: Docusate Sodium 100 MG Cap PO SCH (11:28)
[2019-11-23 15:53] VITALS: BP 125/63; PULSE 95
--- NOTE | 2019-11-24 08:11 | OR ---
SURGEON: ANSHUL Thompson DATE OF PROCEDURE: 11/22/2019 PREOPERATIVE DIAGNOSES: A 38-year-old, G6, P3-0-2-3 at 37 weeks 0 days admitted for quaternary C- section, GDMA2 on insulin, mild preeclampsia, early labor. POSTOPERATIVE DIAGNOSES: A 38-year-old, G6, P3-0-2-3 at 37 weeks 0 days admitted for quaternary C- section, GDMA2 on insulin, mild preeclampsia, early labor. PROCEDURE: Quaternary lower segment section. ESTIMATED BLOOD LOSS: 500. IV FLUID: 1300. ANESTHESIA: Spinal. NOTES AND FINDINGS: A live male delivered at 1827. score is 8 and 9. Weight is 3660 g. BRIEF HISTORY ABOUT THE PATIENT: She is a patient, 37 weeks , who was being managed for care. She had a complication of gestational diabetes which required insulin. She was also noted to have some increasing blood pressure toward the end of . Protein-creatinine ratio was normal, but 24-hour urine was elevated. she was diagnosed as being mild preeclamptic.Patient came in labor. she was consented for quaternary that was assisted by Dr. Cisneros. PROCEDURE IN DETAIL: The patient was taken to the operating room where spinal anesthesia was performed without difficulty. She was prepared and draped in the dorsal supine position with a leftward tilt. A Pfannenstiel skin incision was made at the previous incision. It was extended down to the fascia with the Bovie and the fascia was incised and extended laterally. The fascia was held superiorly with a Yamileth clamp and dissected from the rectus muscles superiorly and inferiorly. The rectus muscle was entered and in the midline. At the level of the pubic symphysis, the lower uterine segment, some portion had the bladder adhered to it so the lower uterine incision was made some centimeters above the bladder adhesion. Then, the fetus was in occiput transverse position, was brought to the level of the incision, with fundal pressure was delivered without any difficulty. The cord was clamped and cut. The infant was handed over to the awaiting heavy duty custodian. The placenta was delivered by manual massage of the uterine fundus and the uterine cavity was cleaned with laparotomy sponges. The uterus was then exteriorized. It was closed in 3 layers. The first 2 layers was 0 Vicryl interlocking, third layer was Monocryl 2-0. The incision was noted to be hemostatic. The uterus was placed back into the abdomen. The adnexa were noted to be normal. The gutters were cleaned. The incision was again reinspected and noted to be hemostatic. The peritoneum was closed and the fascia was closed with 0 Vicryl. The subcutaneous fat was closed with 2-0 Vicryl. The skin was closed with 3-0 Monocryl on a Kimani needle. All instrument and pad counts were correct x2. SANTY FOLEY /[id number] LISSET
== END 2019-11-23 16:20 | disposition home or self-care (01) | DRG 540 ==
LOC: MW.OBCHECK 15:14 → MW.OB 15:16 → MW.OBCHECK 16:12 → MW.OB 16:12
PROVIDERS: ADMIT Obstetrics & Gynecology; ATTEND Obstetrics & Gynecology
PROC: 10D00Z1 Extraction of Products of Conception, Low, Open Approach (ICD-10-PCS; principal; 2019-11-21)
DX: O34.211 Maternal care for low transverse scar from previous cesarean delivery (principal); Z3A.37 37 weeks gestation of pregnancy; Z37.0 Single live birth; O14.04 Mild to moderate pre-eclampsia, complicating childbirth; O24.424 Gestational diabetes mellitus in childbirth, insulin controlled; Z20.828 Contact with and (suspected) exposure to other viral communicable diseases
CPT/HCPCS: 36415; 59025; 80053; 82803; 84550; 85025; 85027; 86592; 86850; 86900; 86901; A9270-GY; J0690; J1100; J1885; J2270; J2405; J2590; J3010; J7120; U0002